=== PATIENT | female | born 1970 | race Caucasian/White ===

== ENCOUNTER 2020-09-04 14:24 | Emergency (ER) | payer MEDICAID ==
[~2020-09-04] VITALS: Ht 157.5 cm; Wt 91.0 kg
[2020-09-04] MEDS ORDERED: IBUPROFEN 600MG TABLET PO ONE (15:00)
[2020-09-04] MEDS ORDERED: IBUP-2029 MT (15:04)
[2020-09-04 16:06] VITALS: BP 164/66
== END 2020-09-04 16:08 | disposition home or self-care (01) ==
LOC: ER 14:24
DX: M79.622 Pain in left upper arm (principal); I10 Essential (primary) hypertension; E11.9 Type 2 diabetes mellitus without complications; Z98.890 Other specified postprocedural states
CPT/HCPCS: 73060; 99283

== ENCOUNTER 2021-07-24 10:32 | Emergency (ER) | payer MEDICAID ==
[~2021-07-24] VITALS: Ht 160 cm; Wt 98.0 kg
[~2021-07-24 10:32] MED LIST: IBUP-2029 MT
[2021-07-24 12:55] VITALS: BP 135/75
== END 2021-07-24 12:52 | disposition home or self-care (01) ==
LOC: ER 10:32
DX: R05.9 Cough, unspecified (principal); Z20.822 Contact with and (suspected) exposure to COVID-19; E11.9 Type 2 diabetes mellitus without complications; I10 Essential (primary) hypertension; Z98.890 Other specified postprocedural states
CPT/HCPCS: 71045; 81025; 87426; 99284

== ENCOUNTER 2021-09-21 13:56 | Emergency (ER) | payer MEDICAID ==
[~2021-09-21] VITALS: Ht 162.6 cm; Wt 118.0 kg
[2021-09-21] MEDS ORDERED: IBUPROFEN 600MG TABLET PO ONE (14:15)
[2021-09-21 15:20] VITALS: BP 145/71
== END 2021-09-21 15:22 | disposition home or self-care (01) ==
LOC: ER 13:56
DX: S93.492A Sprain of other ligament of left ankle, initial encounter (principal); S50.02XA Contusion of left elbow, initial encounter; S60.212A Contusion of left wrist, initial encounter; E11.9 Type 2 diabetes mellitus without complications; I10 Essential (primary) hypertension; W01.0XXA Fall on same level from slipping, tripping and stumbling without subsequent striking against object, initial encounter; Y93.89 Activity, other specified; Y92.410 Unspecified street and highway as the place of occurrence of the external cause; Z98.890 Other specified postprocedural states
CPT/HCPCS: 73080; 73110; 73610; 99284

== ENCOUNTER 2021-10-13 19:46 | Emergency (ER) | payer MEDICAID ==
[~2021-10-13] VITALS: Ht 152.4 cm; Wt 122.0 kg
[2021-10-13 19:50] VITALS: BP 133/72
== END 2021-10-14 00:52 | disposition left against medical advice (07) ==
LOC: ER 19:46
DX: Z53.21 Procedure and treatment not carried out due to patient leaving prior to being seen by health care provider (principal)

== ENCOUNTER 2022-02-13 14:55 | Emergency (ER) | payer MEDICAID, OTHER ==
[~2022-02-13] VITALS: Ht 165.1 cm; Wt 125.0 kg
[2022-02-13] MEDS ORDERED: KETOROLAC 30MG/ML VIAL IM ONE (21:15)
[2022-02-13] MEDS ORDERED: PREDNISONE 20MG TABLET PO ONE (21:15)
[2022-02-13] MEDS ORDERED: CYCLOBENZAPRINE 10MG TABLET PO ONE (21:15)
[2022-02-13 21:32] VITALS: BP 138/78
[2022-02-13] MEDS ORDERED: CYCL5TAB MT (22:46)
[2022-02-13] MEDS ORDERED: MED4 MT (22:47)
== END 2022-02-13 23:07 | disposition home or self-care (01) ==
LOC: ER 14:55
DX: M54.30 Sciatica, unspecified side (principal)
CPT/HCPCS: 73552; 73590; 93971; 96372; 99284; J1885; J7512